=== PATIENT | female | born 2000 | race Caucasian/White ===

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

== ENCOUNTER 2019-08-20 07:07 | Emergency (ER) | payer OTHER ==
--- OUTSIDE RECORDS SUMMARY | 2019-08-20 07:19 | XMS REPORT | Continuity of Care Document ---
:2000 External Reference #:[id number] Author Name Valentin Snyder MD (transmitted by agent of provider Mikala Tang) Address [address] [place] [id number] Care Team Providers Name Role Phone Patient's Choice Care Team Information Emergency Medical Technician/Driver Unavailable Problems Active Problems Provider Date Closed fracture of metatarsal bone Valentin Snyder MD Onset: 08/31/2018 Stress fracture of metatarsal bone Valentin Snyder MD Onset: 12/17/2018 Closed fracture of phalanx of foot Valentin Snyder MD Onset: 07/04/2019 Social History Type Date Description Comments Sex Female Tobacco Use Start: Unknown Never Smoked Cigarettes Smoking Status Reviewed: 07/04/19 Never Smoked Cigarettes ETOH Use Never used alcohol Tobacco Use Start: Unknown Patient has never smoked Exercise Type/Frequency Exercises regularly Allergies, Adverse Reactions, Alerts Active Allergies Reaction Severity Comments Date Pain Killers vomiting 08/31/2018 FD&C Red 40 Macias 01/09/2019 Medications Active Medications SIG Qnty Indications Ordering Provider Date Cam Walker 1units Valentin Snyder MD 10/22/2018 [facility] Vitamin D3 Unknown 1000Unit [facility] Unknown Mfrkack-Nuzbshffv-Orox 333-133-5mg Tablets Potassium Chloride ER 1 by mouth Unknown every day 10Meq Tablets ER Vitamin C 1 by mouth Unknown 500mg Capsules every day Vitamin B Complex 1 by mouth Unknown every day Tablets [facility] Fish Oil Unknown 1200mg Capsules Multivitamin Adult 1 by mouth Unknown every day Tablets Immunizations Description No Information Available Vital Signs Date Vital Result Comment 07/04/2019 1:10pm Height 66 inches 5'6" Weight 159.00 lb Heart Rate 102 /min BP Systolic 118 mmHg BP Diastolic 72 mmHg Respiratory Rate 16 /min Body Temperature 97.3 F Pain Level 6 BMI (Body Mass Index) 25.7 kg/m2 05/10/2019 1:54pm Height 66 inches 5'6" Heart Rate 82 /min BP Systolic 122 mmHg BP Diastolic 82 mmHg Respiratory Rate 12 /min Body Temperature 98.4 F Pain Level 0 Results Test Date Facility Test Result H/L Range Note CBC Auto 01/09/2019 [facility] White Blood 7.2 10^3/uL Normal 3.5-10.[address] [place] [address] [phone] Red Blood Count 4.47 10^6/uL Normal 3.70-4.87 Hemoglobin 14.0 g/dL Normal 12.0-16.0 Hematocrit 41 % Normal 33-41 Mean Corpuscular Volume 92 fL Normal 80-97 Mean Corpuscular Hemoglobin 31 pg Normal 27-31 Mean Corpuscular HGB Conc 34 g/dL Normal 31-36 Red Cell Distribution Width 13 % Normal 10.5-15 Platelet Count 243 10^3/uL Normal 150-450 Mean Platelet Volume 10.3 fL Normal 7.4-10.4 Abs Neutrophils 4.0 10^3/uL Normal 1.5-7.7 Abs Lymphocytes 2.5 10^3/uL Normal 1.0-4.8 Abs Monocytes 0.3 10^3/uL Normal 0-0.8 Abs Eosinophils 0.2 10^3/uL Normal 0-0.6 Abs Basophils 0.1 10^3/uL Normal 0-0.2 Abs Nucleated RBC 0 10^3/uL Granulocyte % 56.3 % Lymphocyte % 34.6 % Monocyte % 4.6 % Eosinophil % 3.5 % Basophil % 1.0 % Nucleated Red Blood Cells % 0.1 Comp Metabolic 01/09/2019 [facility] Sodium 138 mmol/L Normal 135-[address] [place] [address] [phone] Potassium 4.2 mmol/L Normal 3.5-5.0 Chloride 101 mmol/L Normal 101-111 Co2 Carbon Dioxide 30 mmol/L Normal 22-32 Anion Gap 7 mmol/L Normal 2-11 Glucose 80 mg/dL Normal 70-100 Blood Urea Nitrogen 13 mg/dL Normal 6-24 Creatinine 0.90 mg/dL Normal 0.51-0.95 BUN/Creatinine Ratio 14.4 Normal 8-20 Calcium 10.3 mg/dL Normal 8.6-10.3 Total Protein 6.7 g/dL Normal 6.4-8.9 Albumin 4.9 g/dL Normal 3.2-5.2 Globulin 1.8 g/dL Low 2-4 Albumin/Globulin Ratio 2.7 Normal 1-3 Total Bilirubin 0.40 mg/dL Normal 0.2-1.0 Alkaline Phosphatase 59 U/L Normal 34-104 Alt 12 U/L Normal 7-52 Ast 17 U/L Normal 13-39 Egfr Non- 80.7 >60 Egfr 97.6 >60 1 Laboratory test 01/09/2019 [facility] Vitamin D 41.6 ng/mL Normal 20-[address] Total [address](Oh) [place] [address] [phone] TSH (Thyroid Stim Horm) 1.09 mcIU/mL Normal 0.34-5.60 1 Because ethnic data is not always readily available, this report includes an eGFR for both -Americans and non- Americans. The National Kidney Disease Education Program (NKDEP) does not endorse the use of the MDRD equation for patients that are not between the ages of 18 and 70, are , have extremes of body size, muscle mass, or nutritional status, or are non- or non-. According to the National Kidney Foundation, irrespective of diagnosis, the stage of the disease is based on the level of kidney function: Stage Description GFR(mL/min/1.73 m(2)) 1 Kidney damage with normal or decreased GFR 90 2 Kidney damage with mild decrease in GFR 60-89 3 Moderate decrease in GFR 30-59 4 Severe decrease in GFR 15-29 5 Kidney failure <15 (or dialysis) Procedures Description No Information Available Medical Devices Description No Information Available Encounters Type Date Location Provider Dx Diagnosis Office Visit 05/10/2019 Laure Falcon374D Stress fracture , 2:00p [facility], subs for fx w routn heal Office Visit 04/12/2019 Shena Falcon.374A Stress fracture , 1:15p [facility], initial encounter for fracture Office Visit 03/01/2019 [facility] Valentin Snyder, M84.374D Stress fracture , 9:15a [facility] right foot, subs for fx w steffn heal Office Visit 01/30/2019 [facility] Catalina Ramey, M84.376D Stress fracture, 3:30p [facility] unsp foot, subs for fx w steffn heal M85.80 Oth disrd of bone density and structure, unspecified site M85.9 Disorder of bone density and structure, unspecified Office Visit 01/30/2019 [facility] Valentin Snyder, M84.376D Stress fracture , 1:30p [facility] [place] [facility], subs Dina for fx w steffn heal Office Visit 01/09/2019 [facility] Catalina Ramey, Z13.820 Encounter for 1:30p [facility] screening for osteoporosis Z87.81 Personal history of (healed) traumatic fracture M84.376D Stress fracture, unsp foot, subs for fx w steffn heal Assessments Date Code Description Provider 07/04/2019 S92.514A Nondisplaced fracture of proximal phalanx of Valentin Snyder MD right lesser toe(s), initial encounter for closed fracture 05/10/2019 M84.374D Stress fracture, right foot, subsequent Valentin Snyder MD encounter for fracture with routine healing 04/12/2019 M84.374A Stress fracture, right foot, initial encounter Valentin Snyder MD for fracture 03/01/2019 M84.374D Stress fracture, right foot, subs for fx w Valentin Snyder MD routn heal 01/30/2019 M84.376D Stress fracture, unspecified foot, subsequent Catalina Ramey MD encounter for 01/30/2019 M84.376D Stress fracture, unspecified foot, subsequent Valentin Snyder MD encounter for 01/30/2019 M85.80 Other specified disorders of bone density and Catalina Ramey MD structure, uns 01/30/2019 M85.9 Disorder of bone density and structure, Catalina Ramey MD unspecified 01/09/2019 Z13.820 Encounter for screening for osteoporosis Catalina Ramey MD 01/09/2019 Z87.81 Personal history of (healed) traumatic Catalina Ramey MD fracture 01/09/2019 M84.376D Stress fracture, unsp foot, subs for fx w Catalina Ramey MD routn heal Plan of Treatment 07/04/2019 - Valentin Snyder, [id number] Nondisplaced fracture of proximal phalanx of right lesser toe(s), initial encounter for closed fractureFollow up: Follow Up: As needed Functional Status Description No Information Available Mental Status Description No Information Available Referrals Refer to Reason for Referral Status Appt Date Vernell Laird, Deangelo, RD, 18yo with recent stress fracture of Sent 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 High level dancer. Has multiple food allergies. Z-score of -1.8. Please evaluate for energy intake, and assist with calcium supplementation and dietary sources of calcium. [address] [place] [address] [phone]
[2019-08-20 07:23] VITALS: BP 109/66
--- NOTE | 2019-08-20 07:41 | UC ---
Abdominal Pain Female HPI - HPI Summary HPI Summary: 19 yo [employer] student with acute onset of upper abdominal pain and nausea around midnight. Suspects might have been triggered by undercooked steak at [employer] Last vomited about 30 minutes ago. No diarrhea. - History of Current Complaint Chief Complaint: UCAbdominalPain Stated Complaint: ABD PAIN VOMITING Time Seen by Provider: 08/20/19 07:25 Hx Obtained From: Patient Hx Last Menstrual Period: 08/14/19 Onset/Duration: Sudden Onset Pain Intensity: 2 Allergies/Adverse Reactions: Allergies Allergy/AdvReac Type Severity Reaction Status Date / Time Opioids - Morphine Analogues Allergy Nausea And Verified 08/20/19 07:23 Vomiting Opioids-Meperidine and Allergy Nausea And Verified 08/20/19 07:23 Related Vomiting Opioids-Methadone and Related Allergy Nausea And Verified 08/20/19 07:23 Vomiting red dye Allergy HYPERACTIVE/CHANGE Verified 08/20/19 07:23 IN PERSONALITY PMH/Surg Hx/FS Hx/Imm Hx Previously Healthy: Yes - Surgical History Surgical History: Yes Surgery Procedure, Year, and Place: [facility] . ANKLE. Lt ANKLE - BONE SHAVING. T & A - Family History Known Family History: Positive: None - Pt denies FMHX, Non-Contributory - Social History Occupation: Student - second year at [employer] Alcohol Use: Rare Substance Use Type: None Smoking Status (MU): Never Smoked Tobacco Review of Systems All Other Systems Reviewed And Are Negative: Yes Constitutional: Positive: Fatigue Eyes: Positive: Negative ENT: Positive: Negative Respiratory: Negative: Shortness Of Breath, Cough Cardiovascular: Negative: Chest Pain Gastrointestinal: Positive: Abdominal Pain, Vomiting, Nausea Genitourinary: Positive: Negative, Other - last voided around 7 am cycles normal , not sexually active, LMP 08/14/19 Neurological: Positive: Headache - diffuse; tends to get headaches when she feels unwell. Physical Exam Triage Information Reviewed: Yes Appearance: Ill-Appearing - looks pale and unwll Vital Signs: Initial Vital Signs Temp 97.6 F 08/20/19 07:17 Pulse 70 08/20/19 07:17 Resp 16 08/20/19 07:17 BP 109/66 08/20/19 07:17 Pulse Ox 98 08/20/19 07:17 Eye Exam: Other - SEBASTIAN Eyes: Positive: Conjunctiva Clear Neck: Positive: Supple, Nontender, No Lymphadenopathy Respiratory: Positive: Lungs clear, Normal breath sounds Cardiovascular: Positive: RRR, No Murmur Abdomen Description: Positive: No Organomegaly, Soft, Other: - mild epigastric tenderness without rebound. Bowel Sounds: Positive: Present Musculoskeletal Exam: Normal Neurological Exam: Normal Psychological Exam: Normal Skin Exam: Normal, Other - well hydrated mucous membranes. Re-Evaluation - Re-Evaluation First Eval Re-Evaluation Time: 08:40 Change: Improved Comment: no abdominal pain and no further emesis, tolerating fluids Abd Pain Female Course/Dx - Course Course Of Treatment: ondansetron for nausea, rehydration. - Differential Dx/Diagnosis Differential Diagnosis: Other - gastritis, gastroenteritis Provider Diagnosis: Gastritis Discharge ED - Sign-Out/Discharge Documenting (check all that apply): Patient Departure All imaging exams completed and their final reports reviewed: No Studies - Discharge Plan Condition: Stable Disposition: HOME Patient Education Materials: Gastritis (ED) Referrals: No Primary Care Phys,NOPCP [Primary Care Provider] - Additional Instructions: Continue slow sips of clear fluids, and advance to easily digested foods later today if you have no further vomiting and you have an appetite. Begin with clear fluids such as broth based soups and juices. You can take a dose of ondansetron if you have further nausea, at around noon today. - Billing Disposition and Condition Condition: STABLE Disposition: Home
[2019-08-20] MEDS ORDERED: Ondansetron ODT TAB* 4 MG PO ONE ×2 (07:42→09:02)
[2019-08-20] MEDS ORDERED: Ondansetron TAB* 4 MG PO ONE (08:50)
== END 2019-08-20 09:05 | disposition home or self-care (01) ==
LOC: UCEAST 07:07
DX: K29.70 Gastritis, unspecified, without bleeding (principal); R53.83 Other fatigue; R51 Headache; Z88.5 Allergy status to narcotic agent; Z91.09 Other allergy status, other than to drugs and biological substances
CPT/HCPCS: 99212; A9270-GY; G0463